=== PATIENT | male | born 1970 | race Caucasian/White ===

== ENCOUNTER 2017-04-06 12:09 | Emergency (ER) | payer BC ==
[2017-04-06] MEDS ORDERED: Diazepam 5 MG Tab PO ONE (12:57)
[2017-04-06] MEDS ORDERED: Ketorolac 60 MG/2 ML SDV IM ONE (12:57)
[2017-04-06] MEDS ORDERED: HYDROmorphone 1 MG/ML Syringe IM ONE (12:57)
--- NOTE | 2017-04-06 13:23 | EDM.PDOC ---
ED HPI GENERAL MEDICAL PROBLEM - General Chief Complaint: Back Pain or Injury Stated Complaint: BACK INJURY Time Seen by Provider: 04/06/17 12:41 Source of Information: Reports: Patient History Limitations: Reports: No Limitations - History of Present Illness INITIAL COMMENTS - FREE TEXT/NARRATIVE: 46-year-old male presents for evaluation and treatment of low back pain. Patient reports that on Saturday, over one week ago, he was working cattle. 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 He reports since Saturday he has developed low back pain as no moved into his right leg. States that Saturday he went golfing which seemed to worsen the pain. the pain increased. Saturday he saw his chiropractor but did not get any symptom relief. He states this morning he could hardly get up and get out of bed as the pain was so severe. He reports low back pain worse on the right side it radiated into his right leg from his hip down to his toes. He states that coughing, movement makes the pain worse. He has tried ice, biofreeze and a hydrocodone of his [id number]'s. Reports her hydrocodone has helped with the pain. He states that it feels like a muscle spasm or strain. He feels that he if could only stretch the area he feels it would greatly improved. He reports numbness and tingling into the right leg. He denies any urinary incontinence, incontinence, fevers or malaise. Patient's is present and questions if he's had some bruising to the back. Location: Reports: Back Back Pain Score (Numeric/FACES): 10 - Related Data Allergies Allergy/AdvReac Type Severity Reaction Status Date / Time Penicillins Allergy Cannot Verified 04/06/17 12:20 Remember Home Meds: Home Meds Albuterol [Ventolin HFA] 1 inh PO Q4HR PRN 08/25/14 [History] Fluticasone/Salmeterol [Advair 500-50] 1 inh PO BID 08/25/14 [History] Montelukast Sodium [Singulair] 10 mg PO DAILY 08/25/14 [History] Acetaminophen/oxyCODONE [Percocet 325-5 MG] 1 tab PO Q4H PRN #15 tablet [Rx] Fluticasone Propionate [Flonase] 2 sprays NASBOTH DAILY 04/06/17 [History] Prednisone [IJD: predniSONE] 40 mg PO WITHBREAKFAST #10 tab 04/06/17 [Rx] Past Medical History Respiratory History: Reports: Asthma Musculoskeletal History: Reports: Other (See Below) Other Musculoskeletal History: broken neck, shoulder (both) - Past Surgical History HEENT Surgical History: Reports: Other (See Below) Other HEENT Surgeries/Procedures: sinus surg Social & Family History - Family History Family Medical History: Noncontributory - Tobacco Use Smoking Status *Q: Never Smoker Second Hand Smoke Exposure: Yes - Caffeine Use Caffeine Use: Reports: Coffee, Tea Caffeine Use Comment: daily - Recreational Drug Use Recreational Drug Use: No ED ROS GENERAL - Review of Systems Review Of Systems: See Below Constitutional: Denies: Fever GI/Abdominal: Denies: Nausea, Stool Incontinence, Vomiting : Denies: Incontinence Musculoskeletal: Reports: Back Pain (lower back) Skin: Reports: Bruising (questionable bruising lower back). Denies: Wound Neurological: Reports: Numbness, Tingling (right leg) ED EXAM,LOWER BACK PAIN/INJURY - Physical Exam Exam: See Below Exam Limited By: No Limitations General Appearance: Alert, WD/WN, Mild Distress Respiratory/Chest: No Respiratory Distress, Lungs Clear, Normal Breath Sounds Cardiovascular: Normal Peripheral Pulses, Regular Rate, Rhythm, No Murmur GI/Abdominal: Soft, Non-Tender Back Exam: Normal Inspection, Paraspinal Tenderness (L3-L5), Vertebral Tenderness (L3-L5). No: CVA Tenderness (L), CVA Tenderness (R) Extremities: Normal Inspection Neurological: Alert, Normal Mood/Affect, Normal Dorsiflexion, Normal Plantar Flexion, Straight Leg Raise (R), Difficulty Walking. No: Saddle Anesthesia Psychiatric: Normal Affect, Normal Mood Skin Exam: Warm, Dry, Normal Color Course - Vital Signs Last Recorded V/S: Last Vital Signs Temp 36.9 C 04/06/17 12:16 Pulse 71 04/06/17 15:00 Resp 18 04/06/17 15:00 BP 121/76 04/06/17 15:00 Pulse Ox 95 04/06/17 15:00 - Orders/Labs/Meds Meds: Medications Discontinued Medications Generic Name Dose Route Start Last Admin Trade Name Freq PRN Reason Stop Dose Admin Diazepam 5 mg 04/06/17 12:57 04/06/17 13:11 Valium. PO 04/06/17 12:58 5 mg ONETIME ONE Administration Hydromorphone HCl 1 mg 04/06/17 12:57 04/06/17 13:14 Dilaudid IM 04/06/17 12:58 1 mg ONETIME ONE Administration Ketorolac Tromethamine 60 mg 04/06/17 12:57 04/06/17 13:12 Toradol IM 04/06/17 12:58 60 mg ONETIME ONE Administration - Radiology Interpretation Free Text/Narrative:: lumbar spine xray reviewed by myself and Dr. Arteaga shows no acute fractures or dislocations; joint space narrowing with narrowing of the foramen at L4/L5 - Re-Assessments/Exams Free Text/Narrative Re-Assessment/Exam: 04/06/17 14:13 I reviewed the x-ray results with the patient. Pain has improved after medications. I am concerned he may of herniated a disc. It is possible that the herniation may resolve on its own. It is also possible that he may require physical therapy or more intervention. Followup with his primary care provider if his symptoms do not improve. He may need an MRI at a later date. Discharge instructions as documented. Departure - Departure Time of Disposition: 14:21 Disposition: Home, Self-Care 01 Condition: fair Clinical Impression: Low back pain radiating down leg - Discharge Information Prescriptions: Acetaminophen/oxyCODONE [Percocet 325-5 MG] 1 tab PO Q4H PRN #15 tablet PRN Reason: Pain Prednisone [IJD: predniSONE] 40 mg PO WITHBREAKFAST #10 tab Instructions: Back Pain, Adult, [id number] Referrals: PCP,None [Primary Care Provider] - Paco Cordova Jr, MD [Ordering Only Provider] - Forms: ED Department Discharge Additional Instructions: You were given medication in the ER that can affect your ability to drive or operate machinery. No driving or operating machinery within 12 hours of taking prescription narcotic pain medication. Prednisone 40mg (2 tabs) PO daily x 5 days. [id number] Aleve twice a day for pain and inflammation. may take the Percocet 1-2 tabs every 4-6 hours as needed for severe pain not relieved by Aleve. No driving or operating machinery within 12 hours of taking the Percocet. Percocet can be habit forming, I recommend you take as few of these as needed to control your pain. Utilize ice or moist heat to the low back to help with additional pain relief. follow-up with your primary care provider for your symptoms have not improved in 7-10 days. Please return to the ER should your symptoms change or worsen.
[2017-04-06 18:16] VITALS: BP 121/76
--- NOTE | 2017-04-07 15:33 | CR ---
Lumbar spine: AP, lateral and coned-down lateral views centered to the lumbosacral junction were obtained. Comparison: No previous lumbar spine exam. Mild disc space narrowing is noted at L4-L5. Mild posterior disc space narrowing is noted at L5-S1. Posterior spurring is noted at L4-L5. Pedicles as well as transverse and spinous processes are intact. No subluxation or fracture is seen. Impression: 1. Mild degenerative change primarily at L4-L5 as noted above. Diagnostic code #2
== END 2017-04-06 15:00 | disposition home or self-care (01) ==
LOC: JD.ED 12:09
DX: M54.5 Low back pain (principal); J45.909 Unspecified asthma, uncomplicated; Z88.0 Allergy status to penicillin; Z79.899 Other long term (current) drug therapy
CPT/HCPCS: 72100; 96372; 99284; A9270; J1170; J1885; 99283

== ENCOUNTER 2024-05-25 20:15 | Emergency (ER) | payer OTHER, BC ==
[2024-05-25] MEDS: Albuterol 0.083% 2.5 MG/3 ML Neb Soln NEB ONE (21:08)
[2024-05-25 21:15] VITALS: PULSE 70
[2024-05-25 21:24] LABS: BASOPHILS PERCENT AUTO 0.2 % (0.0-1.0); EOSINOPHILS ABSOLUTE AUTO 0.1 K/mm3 (0.0-0.4); EOSINOPHILS PERCENT AUTO 0.5 % (0.0-6.0); HEMATOCRIT 48.5 % (42.0-52.0); IMMATURE GRAN ABSOLUTE AUTO 0.05 K/mm3 (0.00-0.05); IMMATURE GRAN PERCENT AUTO 0.3 % (0.0-0.4); LYMPHOCYTES PERCENT AUTO 6.4 % (24.0-44.0); MEAN CORPUSCULAR HEMOGLOBIN 29.5 pg (28.0-32.0); MEAN CORPUSCULAR VOLUME 89.3 fl (83.0-99.0); MEAN PLATELET VOLUME 11.6 fl (9.4-12.4); MONOCYTES PERCENT AUTO 6.2 % (0.0-8.0); NEUTROPHILS ABSOLUTE AUTO 13.3 K/mm3 (1.8-7.7); NEUTROPHILS PERCENT AUTO 86.4 % (41.0-71.0); PLATELET COUNT,PLT 192 K/mm3 (150-400); RED BLOOD CELL COUNT 5.43 M/mm3 (4.52-5.90); WHITE BLOOD CELL COUNT,WBC 15.41 K/mm3 (3.9-11.3)
[2024-05-25 21:24] LABS: APPEARANCE,URINE CLEAR (Clear); BILIRUBIN,URINE NEGATIVE (Negative); COLOR,URINE YELLOW (Yellow); GLUCOSE,URINE NEGATIVE (Negative); KETONES,URINE NEGATIVE (Negative); LEUKOCYTE ESTERASE,URINE NEGATIVE (Negative); NITRITE,URINE NEGATIVE (Negative); OCCULT BLOOD,URINE NEGATIVE (Negative); PH,URINE 6.5 (5.0-8.0); PROTEIN,URINE TRACE (Negative)
[2024-05-25] MEDS: Sodium Chloride 0.9% 10 ML Syringe FLUSH PRN (21:29)
[2024-05-25] MEDS: Iopamidol 612 MG/ML 30 ML SDV IVPUSH ONE (21:29)
[2024-05-25] MEDS: Iopamidol 612 MG/ML 100 ML Bottle IVPUSH ONE (21:29)
[2024-05-25 21:32] LABS: BACTERIA,URINE FEW /hpf (FEW); MUCUS,URINE MODERATE /hpf (FEW); RBC,URINE 0-5 /hpf (0-5); SQUAMOUS EPITHELIAL CELLS,UR 0-5 /hpf (0-5); WBC,URINE 0-5 /hpf (0-5)
[2024-05-25 21:33] VITALS: BP 153/103
[2024-05-25 21:54] LABS: A/G RATIO 1.1 (1-2); ALBUMIN 4.2 g/dl (3.4-5.0); ANION GAP 15.6 (5-15); BILIRUBIN TOTAL 0.4 mg/dL (0.2-1.0); BUN/CREATININE RATIO 11.5 (14-18); CALCIUM 9.3 mg/dL (8.5-10.1); CREATININE 1.3 mg/dL (0.7-1.3); EST CRCL DRUG DOSING (CG) 74.27 mL/min; POTASSIUM,K 3.6 mEq/L (3.5-5.1); PROTEIN TOTAL,TP 8.2 g/dl (6.4-8.2)
[2024-05-25] MEDS: Diphtheria,Pertussis(Acell),Tetanus Vaccine 0.5 ML Syringe IM ONE (23:01)
[2024-05-25] MEDS: Lidocaine 1% 10 ML MDV INJECT ONE (23:02)
== END 2024-05-25 23:53 | disposition home or self-care (01) ==
LOC: JD.ED 20:15
DX: S51.012A Laceration without foreign body of left elbow, initial encounter (principal); S21.112A Laceration without foreign body of left front wall of thorax without penetration into thoracic cavity, initial encounter; J45.909 Unspecified asthma, uncomplicated; Z79.899 Other long term (current) drug therapy; Z88.0 Allergy status to penicillin; Z23 Encounter for immunization; V29.99XA Rider (driver) (passenger) of other motorcycle injured in unspecified traffic accident, initial encounter
CPT/HCPCS: 12002; 36415; 70450; 71045; 71260; 72125; 73080; 74177; 80053; 80307; 81001; 83690; 85025; 90471; 90715; 94640; 99284; J3490; Q9967; J7620-GY